=== PATIENT | female | born 1940 | race Caucasian/White ===

== ENCOUNTER → 2024-02-12 10:24 | Outpatient (REF) | payer MEDICARE, SELFPAY ==
[2024-02-12 11:35] LABS: % Basophils 0.8 % (0-2); % Eosinophils 2.3 % (0-6); % Immature Granulocytes 0.9 % (0-0.5); % Lymphocytes 20.8 % (20.5-51.1); % Monocytes 8.1 % (1.7-9.3); % Neutrophils 67.1 % (42.2-75.2); Absolute Basophils 0.1 10^3/uL (0-0.2); Absolute Eosinophils 0.2 10^3/uL (0-0.7); Absolute Immature Granulocytes 0.1 10^3/uL (0-0.05); Absolute Lymphocytes 1.9 10^3/uL (1.2-3.4); Absolute Monocytes 0.8 10^3/uL (0.1-0.6); Absolute Neutrophils 6.2 10^3/uL (1.4-6.5); Hematocrit 45.5 % (37.0-47.0); Hemoglobin 15.3 g/dL (12.0-16.0); Mean Corp Hgb Conc. 33.6 g/dL (33.0-37.0); Mean Corpuscular Hgb 31.5 pg (27.0-31.0); Mean Corpuscular Volume 93.8 fL (81.0-99.0); Mean Platelet Volume 9.7 fL (7.4-10.4); Nucleated Red Blood Cells % 0 %; Platelet Count 377 10^3/uL (130-400); Red Blood Cell Count 4.85 10^6/uL (4.20-5.40); Red Cell Dist. Width 13.3 % (11.5-14.5); White Blood Cell Count 9.2 10^3/uL (4.8-10.8)
[2024-02-12 12:41] LABS: ALT (SGPT) 25 U/L (0-35); AST (SGOT) 25 U/L (14-36); Albumin 4.9 g/dl (3.5-5.0); Alkaline Phosphatase 82 U/L (38-126); Blood Urea Nitrogen 20 mg/dl (7-17); Calcium 10.1 mg/dl (8.4-10.2); Carbon Dioxide 24 mmol/L (22-30); Chloride 104 mmol/L (98-107); Glucose 97 mg/dl (70-99); HDL Cholesterol 73 mg/dl; LDL Cholesterol, Calculated 121 mg/dl; Potassium 4.7 mmol/L (3.5-5.1); Sodium 139 mmol/L (135-145); Total Bilirubin 0.7 mg/dl (0.2-1.3); Total Cholesterol 219 mg/dl (50-199); Total Protein 7.7 g/dl (6.3-8.2); Triglyceride 125 mg/dl (10-149); Very Low Density Lipoprotein 25 mg/dl (0-30); eGFR > 60.00
[2024-02-12 12:43] LABS: Glycohemoglobin (HgbA1c) 5.7 % (4.0-5.6)
== END ==
LOC: REG 10:24
PROVIDERS: ATTENDING PHYSICIAN Physician Assistant
DX: H25.019 Cortical age-related cataract, unspecified eye (principal); M17.12 Unilateral primary osteoarthritis, left knee; I26.92 Saddle embolus of pulmonary artery without acute cor pulmonale; E66.3 Overweight; E55.9 Vitamin D deficiency, unspecified; G31.84 Mild cognitive impairment of uncertain or unknown etiology; E66.9 Obesity, unspecified; R73.9 Hyperglycemia, unspecified
CPT/HCPCS: 36415; 80053; 80061; 83036; 85025

== ENCOUNTER 2025-09-11 23:38 | Emergency (ER) | payer MEDICARE, SELFPAY ==
[2025-09-11 23:45] VITALS: BP 77/63
[2025-09-11 23:46] VITALS: BP 51/33
[2025-09-12] VITALS (11 sets, daily range): BP systolic 44–100; BP diastolic 16–64
[2025-09-12 00:13] LABS: B.E. -19.1 mmol/L; O2 Saturation % 84.9 % (94-98); PCO2 62 mmHg (32-35); PO2 70 mmHg (83-108)
[2025-09-12 00:15] LABS: HCO3 13.6 mmol/L (21-28)
[2025-09-12 00:19] LABS: Venous Blood Gas B.E. -18.1 mmol/L (-4 to +4); Venous Blood Gas O2 Sat % 43.0 %
[2025-09-12 00:41] LABS: ALT (SGPT) 29 U/L (0-35); AST (SGOT) 39 U/L (14-36); Albumin 4.1 g/dl (3.5-5.0); Alkaline Phosphatase 62 U/L (38-126); Blood Urea Nitrogen 16 mg/dl (7-17); Calcium 9.1 mg/dl (8.4-10.2); Carbon Dioxide 16 mmol/L (22-30); Chloride 108 mmol/L (98-107); Glucose 333 mg/dl (70-99); Potassium 4.6 mmol/L (3.5-5.1); Sodium 141 mmol/L (135-145); Total Protein 6.6 g/dl (6.3-8.2); eGFR 40.30
[2025-09-12 00:47] LABS: Hematocrit 45.4 % (37.0-47.0); Hemoglobin 14.0 g/dL (12.0-16.0); Mean Corp Hgb Conc. 30.8 g/dL (33.0-37.0); Mean Corpuscular Volume 102.0 fL (81.0-99.0); Nucleated Red Blood Cells % 0 %; Platelet Count 211 10^3/uL (130-400); Red Cell Dist. Width 13.3 % (11.5-14.5)
[2025-09-12 00:51] LABS: Troponin I 1.190 ng/ml
--- NOTE | 2025-09-12 01:13 | ED.GENMED ---
History of Present Illness
General
Chief Complaint: Breathing Problem
Source: ambulance crew
Exam Limitations: clinical condition and altered mental status
Time Seen by Provider: 09/12/25 00:03
Nursing documentation reviewed up to this point in time: agreed with
History of Present Illness
History of Present Illness:
Note:
CHIEF COMPLAINT(S)
Shortness of breath. Ventilator dependent respiratory failure
HISTORY OF PRESENT ILLNESS
The patient is an 85-year-old female presenting with acute onset of shortness of breath that began 2 days ago and progressively worsened throughout the last few days. Daughter states that she has a history of multiple pulmonary emboli. She has
been on Eliquis. Daughter states that she ran out and has been taking half dose for the last month, missing some days. For the last 2 days, patient has not taken any Eliquis as she has been completely out. Patient began having respiratory
distress on the first day that she did not take Eliquis. Accompanying her respiratory distress, there is significant fatigue and alteration in mental status. Daughter Myriam, a nurse in [place], states that after her last pulmonary embolism she
has had memory issues. Tonight, her condition deteriorated to the extent that she required intubation.
Upon EMS arrival, her oxygen saturation was 84% on six liters per minute via nasal cannula, which was later increased to 15 liters per minute via non-rebreather mask due to continual respiratory decline and her developing fatigue. Despite these
interventions, the patient was not maintaining adequate oxygenation.
EMS administered 160 mg of acetaminophen and 80 micrograms of ketamine for sedation. She was also given approximately 600 mL of fluids intravenously. The patients respiratory status remained critical, prompting intubation for airway management. She
initially received 0.3 micrograms/kg/min of a pressor agent during EMS care. Current medications include Apixaban (Eliquis), with no known recent falls.
ADDITIONAL HISTORY OBTAINED FROM SOURCES OTHER THAN THE PATIENT
The information was provided by EMS. The patients condition was confirmed by the personnel attending to her, who detailed the sequence of events leading to the patients intubation and pre-hospital management.
MEDICATIONS
The patient is currently on Apixaban (Eliquis).
PHYSICAL EXAM
General: Intubated, central cyanosis upon arrival. Skin mottled
Cardiovascular: Thready pulses, No edema.
Respiratory: Intubated for airway protection due to respiratory failure; breaths previously were labored. Tube was pulled back 2 cm after x-ray showed that it was in the right mainstem.
Neurological: Unable to assess secondary to patient being on ketamine.
PROBLEM LIST
Acute: Acute respiratory failure, Altered mental status. Anterior ST Elevation and New RBBB
Chronic: Pulmonary emboli, on Eliquis
PLAN
1. Continue aggressive airway management with mechanical ventilation.
2. Monitor oxygen saturation and adjust ventilatory settings as necessary.
3. Obtain arterial blood gas to assess respiratory status and metabolic parameters.
4. Administer fluids to maintain hemodynamic stability; monitor response closely.
5. Prepare for potential intensive care unit admission for further management and observation.
DIFFERENTIAL DIAGNOSIS
The Differential Diagnosis includes, in no particular order and is not limited to:
1. Pulmonary Embolism
2. Anterior Mi - No reported CP according to daughter
3. Chronic obstructive pulmonary disease exacerbation
4. Acute coronary syndrome
5. Pneumonia
6. Sepsis
7. Heart failure
8. Asthma exacerbation
9. Anemia
10. Medical Non Compliance
CARE-UPDATE
09/12/25 - :16
Patients medication compliance issue identified with recent missed doses and reduced intake of Eliquis, potentially leading to respiratory distress. Concern for a possible new pulmonary embolism raised due to the sudden respiratory symptoms,
especially in the context of the past history of multiple PE events. Immediate review and replenishment of Eliquis prescription recommended to address potential lapse. Consider further diagnostic evaluation to confirm the presence of a new pulmonary
embolism as suggested by the reported symptoms and history. Discussion of compliance importance with family advised.
CARE-UPDATE
09/12/25 - :25
Spoke with Leonidas Maza in the coroners office. They have released the body. The family practitioner, TIMOTHY Webster, will fill out the certificate.
Disposition:
SUMMARY OF ENCOUNTER
The patient is an 85-year-old female with a history of pulmonary emboli who presented to the emergency department in severe respiratory distress and was intubated in the field. Upon arrival, she was intubated and on sedation. Despite interventions,
the patient went into cardiac arrest when she arrived.
ASSESSMENT
Acute respiratory failure likely due to recent non-compliance with anticoagulation therapy, resulting in suspicion of new pulmonary embolism and subsequent cardiac arrest.
EMERGENCY TREATMENTS ADMINISTERED
Resuscitation procedures were conducted upon the patients cardiac arrest upon arrival to the emergency department.
MANAGEMENT OF THE PATIENTS CARE WAS DISCUSSED WITH
Coordination and management were communicated with relevant emergency department staff and specialists involved in the case management and resuscitation efforts.
PLAN
Continue aggressive respiratory and cardiac support measures including intubation and mechanical ventilation. Monitor closely for hemodynamic stability and initiate cardiopulmonary resuscitation (CPR) protocols as necessary. Explore potential causes
of cardiac arrest related to thromboembolic events. Consideration for further diagnostic imaging pending patient stabilization.
MEDICAL DECISION MAKING
- Number and Complexity of Problems Addressed: Chronic conditions affecting care include pulmonary emboli. The differential diagnosis considered acute pulmonary edema, pneumonia, chronic obstructive pulmonary disease exacerbation, pulmonary
embolism, acute coronary syndrome, sepsis, heart failure, asthma exacerbation, anemia, and drug-induced respiratory depression.
- Data:
- Category 2
Input from independent historians from emergency response personnel providing details of the patients clinical status and pre-hospital interventions.
CRITICAL CARE TIME
I provided critical care time due to a high probability of clinically significant, life-threatening deterioration. Direct management of the patients acute distress required my highest level of preparedness to intervene emergently. This included
obtaining a history, examining the patient, reviewing pulse oximetry, ordering and review of studies, coordination of urgent treatment, and discussions with other providers regarding management plans. This critical care time was performed to address
the imminent, life-threatening deterioration.
DIAGNOSIS
- Acute respiratory failure (J96.00)
- Cardiac arrest (I46.9)
- History of multiple pulmonary emboli (I26.09)
Time Pronounced : 00:51
Past History
Past History
ED Past Medical History: None
Social History
Tobacco: Non-smoker
Alcohol: None
Drug: None
Phy Exam
Physical Exam
Physical Exam:
CODE EXAM:
Performed when patient lost pulses. See prior exam for patient's condition upon arrival to the ER
VITAL SIGNS: No palpable blood pressure, no pulses, no respiration.
GENERAL EXAM: Mottled
EYES: Pupils fixed
ENT: Patient intubated by EMS
NECK: No venous distention
RESPIRATORY: Equal breath sounds
CARDIAC: Absent heart sounds
VASCULAR: Absent pulses
ABDOMEN: Soft no masses
GUAIAC: Not done
MUSCULOSKELETAL: Unable to evaluate strength
EXTREMITIES: No edema or contractures
SKIN: No rash
PSYCH: Mood, affect unable to evaluate
Scores
Heart Failure Risk
Heart Failure Risk Score: Not Applicable
Course
Orders/Labs/Results
Orders:
Orders
09/11/25 23:39
Atropine Sulfate [Atropine 0.1 mg/ml Syringe] 3 mg .ROUTE .STK-MED ONE
DOPamine 400 MG/D5W 250 ML [DOPamine] 400 mg .ROUTE .STK-MED ONE
EPINEPHrine [Adrenalin 1 mg/10 ml] 7 mg .ROUTE .STK-MED ONE
09/11/25 23:41
Chest X-ray Portable [CR Chest Portable - 1 View] Stat
Comment:
Reason For Exam: intubated
Reason Study Needs to be Portable: Unable to Transport
09/11/25 23:42
Propofol 1,000,000 Mcg/100 ml [Diprivan] 1,000,000 mcg in 100 ml .ROUTE .STK-MED
09/11/25 23:45
NORepinephrine 4 MG/250 ML [Levophed] 4 mg in 250 ml .ROUTE .STK-MED
09/12/25 00:07
ABG [Arterial Blood Gas] Stat
%Oxygen/Room Air: 84
09/12/25 00:11
Comprehensive Metabolic Panel Urgent
Venous Blood Gas Urgent
%Oxygen/Room Air: 100
09/12/25 00:12
Complete Blood Count/With Diff Urgent
Lactic Acid Urgent
NT-proBNP Urgent
PTT Urgent
Troponin I Urgent
EPINEPHrine 4 mg/250 mL NSS [Adrenalin] 4 mg in 250 ml .ROUTE .STK-MED
09/12/25 00:13
Electrocardiogram (*1) Urgent
Reason for Study: Other
Other Reason for Exam: arrest
EKG- Treatment ONCE
09/12/25 00:26
HIV Combo Urgent
Hepatitis B Surface Antibody Urgent
Hepatitis B Surface Antigen Urgent
Hepatitis C Antibody Urgent
Abnormal Lab Results
09/12/25 09/12/25 09/12/25
00:07 00:11 00:12
WBC 14.1 H 10^3/uL
(4.8-10.8)
MCV 102.0 H fL
(81.0-99.0)
MCH 31.5 H pg
(27.0-31.0)
MCHC 30.8 L g/dL
(33.0-37.0)
Abs Immat Gran (auto) 0.3 H 10^3/uL
(0-0.05)
Absolute Neuts (auto) 10.5 H 10^3/uL
(1.4-6.5)
Immature Gran % 2.1 H %
(0-0.5)
Lymphocytes % 18.8 L %
(20.5-51.1)
pH 6.95 L*
(7.35-7.45)
pCO2 62 H mmHg
(32-35)
pO2 70 L mmHg
(83-108)
HCO3 13.6 L* mmol/L
(21-28)
ABG O2 Sat (Measured) 84.9 L %
(94-98)
VBG pH 6.88 L*
(7.32-7.43)
VBG pCO2 91 H* mmHg
(35-48)
VBG HCO3 17.0 L mmol/L
(22-27)
Chloride 108 H mmol/L
(98-107)
Carbon Dioxide 16 L mmol/L
(22-30)
Creatinine 1.3 H mg/dL
(0.6-1.0)
Glucose 333 H mg/dl
(70-99)
Lactic Acid 8.6 H* mmol/L
(0.7-2.0)
AST 39 H U/L
(14-36)
Troponin I 1.190 H* ng/ml
09/12/25 00:12
09/12/25 00:11
Vital Signs
Initial and Last Documented VS:
Initial Vital Signs
Pulse Resp BP
94 14 77/63
09/11/25 23:45 09/11/25 23:45 09/11/25 23:45
Last Documented Vital Signs
Pulse Resp BP Pulse Ox
138 31 53/21 68
09/12/25 00:50 09/12/25 00:50 09/12/25 00:50 09/12/25 00:50
Procedures
Central Line
Left Femoral:
Indication for procedure:: Respiratory arrest
Procedure completed by: Myself
If no, reason: Emergency procedure
Central line lumen: triple
Number of attempts: 1
Central line complications: none
Sterile dressing applied?: Yes
Right External jugular:
Indication for procedure:: Hypotension
Procedure completed by: Myself
If no, reason: Emergency procedure
Central line lumen: single
Number of attempts: 1
Central line complications: none
Sterile dressing applied?: Yes
*Radiology
Radiology exam reviewed: preliminary read by ED provider (ET tube placed by EMS was in the right mainstem it was pulled back 2 cm)
*Pulse Oximetry
Oxygen Mode of Delivery: Ventilator
Patient hypoxic: yes
*Critical Care Note
Total Time (30-74mins, 75-104mins- exclusive of procedures): 55 (Critical care statement: A total of 55 minutes of critical care time was provided for this patient. This time is separate from time utilized to perform the aforementioned documented
procedures. Aggregate critical care time includes only time during which I was engaged in work directl)
Update Note
Update Note:
Spoke with Leonidas Yoo from the material assembler's office. certificate filled out and certified by myself
Of note, nurse, during the cardiac arrest, got stuck by an IV needle. It was a superficial stick, but hepatitis and HIV labs were drawn.
ED Attending Note
-
Portions of this chart may have been created with voice recognition software.� Occasional wrong word or��sound alike� substitutions may have occurred due to the inherent limitations of voice recognition software.
Discharge Plan
Departure
Patient Disposition:
Date of Disposition: 09/12/25
Time of Disposition: 00:51
Condition: Critical
Discharge Problem:
Acute non-ST elevation myocardial infarction (NSTEMI), Respiratory arrest, Cardiac arrest, Acidosis, lactic, Acute coronary syndrome, Elevated troponin, Hypotension requiring administration of vasopressor
Prescriptions:
No Action
multivitamin with folic acid [Tab-A-Shauna] 1 TABLET tablet
1 tab PO DAILYPRN PRN (Reason: supplement)
Patient Comments:
States 'when I remember'
apixaban [Eliquis] 5 MG tablet
10 mg PO BID 30 Days Qty: 90 0RF
Rx Instructions:
Take 10mg (2 tabs) po bid for additional 13 dose then 5mg po bid
Referrals:
Rhea Rios PA [[facility]]
UNKNOWN - PT DOES,NOT KNOW [Family Provider]
Interventions
Interventions:
*Risk Screen - Suicide Last Done: 09/11/25 23:42
*General Assessment Last Done: 09/11/25 23:42
*Neglect/Abuse Screening Last Done: 09/11/25 23:42
*ED COVID-19 Vaccine History Last Done: 09/11/25 23:42
*ED Influenza Vaccine History Last Done: 09/11/25 23:42
*Nursing Disposition Last Done: 09/12/25 03:15
ED- Cardiac Assessment Last Done: 09/11/25 23:56
ED- Pulmonary Assessment Last Done: 09/11/25 23:54
Discharge Date and Time
Discharge Date/Time: 09/12/25 00:51
Print Language: CAP[place]DE[place]
--- NOTE | 2025-09-12 01:20 | EDRN ---
pt arrived via ems @ 2338 intubated. Vital signs unstable, unable to get an spo2 reading on pt, bp on arrival 77/63, HR 93. Initial ems report was pt called 911 for worsening sob, ems stated pt was tachypneic, 84% on RA, initially placed on 6L NC
with minimal response, pt then placed on non-rebreather @ 15L, again minimal response, pt then maxed out @ 25L before intubation. Per ems pt was becoming confused, fatigued, increased work of breathing, and spo2 decreasing. @ 2346 pts bp was 51/33.
Repeated @ 0005, bp then 44/17, repeated a minute later, 52/16. Due to poor IV access, EJ placed by Dr. Boyd, 20G R side. PT then started on Levophed per Dr. Boyd, Pt started @ 8 mcg. pt also given 1L NSS. Pt then became bradycardic in the
30s. Epi given @ 0011. pt then continued to decline. 1mg of Atropine given @ 0013. 1mg of Epi given @ 0013. Pulses checked with doppler, + pulses, pt vitals continued to be unstable, hypotensive and bradycardic. Dopamine gtt started @ 0017, 10 mcg.
Levophed titrated to 10mcg per Dr. Boyd. No response to titration, Levophed again titrated to 16mcg @ 0031. Dopamine titrated per Dr. Boyd @ 0035 to 12mcg. PT increasingly bradycardic in 20s. 1mg of Epi given @ 0037. 1mg of Atropine given
@ 0040. Central line placed by Dr. Boyd @ 0040. Epi gtt started @ 0042, 1 mcg/min per Dr. Boyd. Levophed gtt titrated to 18 mcg @ 0042. 1 mg of Epi given @ 0043. 1mg of Atropine given @ 0044. Epi gtt titrated to 2mcg/min per Dr. Boyd.
PT then became pulseless @ 0046, CPR started per Dr. Boyd. 1mg of Epi given @ 0047. @ 0048 pulses checked, none felt/heard with doppler, CPR restarted. 1mg of Epi given @ 0050. Pulse check @ 0050, none felt/heard, Dr. Boyd pronounced time
of @ 50.
[2025-09-12 02:11] LABS: Hepatitis B Surface Antigen Negative (Negative)
[2025-09-12 02:28] LABS: Hepatitis C Antibody Negative (Negative)
== END 2025-09-12 00:51 | disposition expired ==
LOC: EMR 23:38
PROVIDERS: EMERGENCY PHYSICIAN Student in an Organized Health Care Education/Training Program
DX: J96.00 Acute respiratory failure, unspecified whether with hypoxia or hypercapnia (principal); I46.9 Cardiac arrest, cause unspecified; E87.20 Acidosis, unspecified; I21.4 Non-ST elevation (NSTEMI) myocardial infarction; Z79.01 Long term (current) use of anticoagulants; Z86.711 Personal history of pulmonary embolism; Z99.11 Dependence on respirator [ventilator] status
CPT/HCPCS: 99291; 36556; 71045; 80053; 82805; 83605; 83880; 84484; 85025; 86706; 86803; 87340; 87389; 93005; 94002